=== PATIENT | male | born 1980 | race Caucasian/White ===

== ENCOUNTER 2023-10-13 08:05 | Emergency (ER) | payer OTHER, SELFPAY ==
--- NOTE | ~2023-10-13 | XR_ITS ---
EXAMINATION: XR finger 2nd RT min 2V DATE: 10/13/2023 08:38 INDICATION: Right hand second digit injury. TECHNIQUE: 4 views of right hand second digit were obtained. COMPARISON: None. FINDINGS: Bone alignment is normal. No fracture. 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 There is soft tissue swelling. IMPRESSION: 1. No fracture. Reviewed, dictated and finalized at location E. IMPRESSION: 1. No fracture.
[2023-10-13 08:22] VITALS: BP 168/95; PULSE 72; RESP 18; TEMP 36.7; O2SAT 100
--- NOTE | 2023-10-13 08:32 | ED.UPPEXIN ---
HPI - Extremity Injury (Upper) General Chief Complaint: Extremity Injury, Upper Stated Complaint: Cut Right Hand Time Seen by Provider: 10/13/23 08:21 Source: patient and RN notes reviewed Mode of arrival: ambulatory Limitations: no limitations History of Present Illness HPI narrative: Patient presents today with a laceration to the dorsum of his right 2nd PIP. States he was working on his lawnmower 2 days ago at home when his hand struck the lawnmower blade. The laceration has since closed up on his hand but the finger has progressively become more painful, swollen. Denies numbness or tingling. He is currently pain-free at rest, but this increases with any movement to 3/10. He has been cleaning the area and applying Neosporin. He is not up-to-date on his tetanus vaccine. Related Data Allergies Allergy/AdvReac Type Severity Reaction Status Date / Time shellfish derived Allergy Mild Rash Verified 10/13/23 09:06 Review of Systems Review of Systems: CONSTITUTIONAL: Denies body aches, fever, chills, or sweats. EYES: Denies visual changes, redness, or discharge. ENT: Denies rhinorrhea, congestion, sore throat, or otalgia. CARDIOVASCULAR: Denies chest pain, palpitations, or edema. RESPIRATORY: Denies cough or dyspnea. GASTROINTESTINAL: Denies abdominal pain, nausea, vomiting, or diarrhea. GENITOURINARY: Denies dysuria or hematuria. SKIN: Denies rash, itching, or wounds. MUSCULOSKELETAL: + right 2nd finger swelling, pain, laceration NEUROLOGIC: Denies headache, numbness, tingling, or weakness. PSYCH: Denies depression or anxiety. PMFSH Comments At time of signature, I have reviewed and agree with nursing past medical, surgical, social and family history unless otherwise noted. Please see nursing chart for further information. There is no relevant family history pertinent to the presenting complaint Exam Narrative: GENERAL: Well-appearing, well-nourished, and in no acute distress. HEAD: Normocephalic, atraumatic. EYES: EOMI. No redness or drainage. Conjunctivae normal. ENT: Mucous membranes pink and moist. NECK: Normal AROM. CHEST: No respiratory distress. EXTREMITIES: Right 2nd finger: Approx 1.5cm scabbed laceration to the dorsum of the PIP. Finger is mild to moderately swollen and mildly erythematous. Distal sensation intact. Capillary refill normal. Decreased range of motion due to pain and swelling. Range of motion is strong against resistance. SKIN: Warm, dry, no rash. Capillary refill normal. Normal skin turgor. NEURO: No focal deficits. Alert and oriented x3. Gait steady. PSYCH: Normal affect. No signs of depression or anxiety. Course Course Level of Care: Express Care Visit Vital Signs Vital signs: Vital Signs Temperature 98.1 F 10/13/23 08:22 Pulse Rate 72 10/13/23 08:22 Respiratory Rate 18 10/13/23 08:22 Blood Pressure 168/95 H 10/13/23 08:22 Pulse Oximetry 100 10/13/23 08:22 Oxygen Delivery Room Air 10/13/23 08:22 Temperature 98.1 F 10/13/23 08:22 Pulse Rate 72 10/13/23 08:22 Respiratory Rate 18 10/13/23 08:22 Blood Pressure 168/95 H 10/13/23 08:22 Pulse Oximetry 100 10/13/23 08:22 Oxygen Delivery Room Air 10/13/23 08:22 Reviewed MDM - Extremity Injury (Upper) MDM Narrative Medical decision making narrative: X-rays negative. Will place patient on Keflex for cellulitis. Patient works out side doing facility maintenance, so did not prescribe Bactrim or doxycycline, which will increase risk of sunburn. Recommend PCP or hand specialist follow-up at the end of week to ensure healing. Splint applied. Anticipatory guidance given. Differential Diagnosis Differential diagnosis: Likely other (Infected laceration, fracture, cellulitis) Imaging Data Radiologist's impression: ITS Impressions Finger X-Ray 10/13/23 08:41 IMPRESSION: 1. No fracture. Critical Care Time Critical Care Time Critical Care Time: No Discha
[2023-10-13] MEDS: TETANUS,DIPHTHERIA,AC PERTUSSIS ADULT (0.5 ML) BOOSTRIX IM (08:49)
== END 2023-10-13 09:16 | disposition home or self-care (01) ==
PROVIDERS: Emergency Provider Nurse Practitioner
DX: L03.011 Cellulitis of right finger (principal); S61.210A Laceration without foreign body of right index finger without damage to nail, initial encounter; W28.XXXA Contact with powered lawn mower, initial encounter; Z23 Encounter for immunization
CPT/HCPCS: 29130; 73140; 90471; 90715; 99213; G0463